=== PATIENT | female | born 1945 | race African-American/Black ===

== ENCOUNTER 2017-01-05 10:08 | Emergency (ER) | payer OTHER ==
[~2017-01-05] VITALS: Ht 170.2 cm; Wt 81.6 kg
[2017-01-05 10:02] VITALS: BP 137/86
--- NOTE | 2017-01-05 11:13 | Diagnostic Imaging Report ---
Indication: Trauma with pain Technique: CT scan of the pelvis performed without intravenous contrast material. Axial, coronal, and sagittal images were generated. Dose: Total Dose Length Product - DLP [address] Dose Index - CTDIvol(s) 11.52 mGy. Comparison: None Findings: Examination demonstrates the pelvis to be intact. No fractures identified. There is no evidence of bone destruction. There is severe narrowing of the left hip joint with subchondral cyst formation in the femoral head and within the acetabulum. Spurring is also present. The right hip joint is unremarkable. There is some degenerative change as well as in the symphysis pubis. Degenerative changes also noted in the lumbar spine (see CT lumbar) . There is a grade 1 spondylolisthesis of L5 on S1. The uterus demonstrates abnormal thickening of the endometrium to 2.5 cm. There is also a mass in the left side of the uterus measuring 3.3 cm. The bladder is unremarkable. There is some vascular calcification. Impression: Degenerative changes in the lumbar spine. Grade 1 spondylolisthesis of L5 on S1. Severe osteoarthrosis of the left hip. Abnormal thickening of the endometrium. Further evaluation with ultrasound suggested. Fibroid in the left side of the uterus. The CT scanner at [facility] is accredited by the [employer] and the scans are performed using protocols designed to limit radiation exposure to as low as reasonably achievable to attain images of sufficient resolution adequate for diagnostic evaluation.
[2017-01-05 11:15] LABS: MEAN CORPUSCULAR HEMOGLOBIN 35.6 PG (27.0-31.0); MEAN CORPUSCULAR HGB CONC 32.2 G/DL (32.0-36.0); MEAN CORPUSCULAR VOLUME 111 FL (80-99); MEAN PLATELET VOLUME 7.3 FL (6.5-10.1); PLATELET COUNT 106 K/UL (150-450); RED BLOOD COUNT 3.73 M/UL (4.20-5.40); RED CELL DISTRIBUTION WIDTH 13.1 % (11.6-14.8); WHITE BLOOD COUNT 7.9 K/UL (4.8-10.8)
--- NOTE | 2017-01-05 11:17 | Diagnostic Imaging Report ---
Indication: Trauma with pain Technique: CT scan of the lumbar spine performed without intravenous contrast material. Axial, coronal comment sagittal images were generated. Dose: Total Dose Length Product - DLP [address] Dose Index - CTDIvol(s) 12.6 mGy. Findings: L5-S1: There is narrowing of the L5-S1 disc with a vacuum phenomenon. Mild annular bulge of the disc is noted. There is a grade 1 spondylolisthesis of L5 on S1. Narrowing of the facets is present with some subchondral cyst formation. Spinal canal is normal in width. There is foraminal narrowing bilaterally. L4-L5: The disc is normal. There is mild foraminal narrowing bilaterally.. There is severe degenerative change in the facets.. The spinal canal is normal in width. The nerve roots are symmetric. L3-L4: The disc is normal. The neural foramina are unremarkable. There is moderate degenerative change of the facets.. The spinal canal is normal in width. The nerve roots are symmetric. L2-L3: The disc is normal. The neural foramina are unremarkable. The facets are normal. The spinal canal is normal in width. The nerve roots are symmetric. L1-L2: The disc is normal. The neural foramina are unremarkable. The facets are normal. The spinal canal is normal in width. The nerve roots are symmetric. Impression: Degenerative spondylosis, worst at L4-5 and L5-S1. Grade 1 spondylolisthesis of L5 on S1. Bilateral L5-S1 foraminal narrowing. Mild foraminal narrowing at L4-5. There is no evidence of fracture or acute abnormality. The CT scanner at [facility] is accredited by the [employer] and the scans are performed using protocols designed to limit radiation exposure to as low as reasonably achievable to attain images of sufficient resolution adequate for diagnostic evaluation.
[2017-01-05 11:44] LABS: APPEARANCE,URINE CLEAR; KETONES,URINE 4+ (NEGATIVE); LEUKOCYTE ESTERASE ,URINE 1+ (NEGATIVE); NITRITE,URINE NEGATIVE (NEGATIVE); PH,URINE 6 (4.5-8.0); PROTEIN,URINE 2+ (NEGATIVE); UROBILINOGEN,URINE 1 MG/DL (0.0-1.0)
[2017-01-05 11:59] LABS: BACTERIA,URINE FEW /HPF; MUCUS,URINE MODERATE /LPF (NONE/OCC); RBC,URINE 0-2 /HPF (0 - 2); SQUAMOUS EPITHELIAL CELL,UR FEW /LPF (NONE/OCC)
[2017-01-05 12:04] LABS: BAND NEUTROPHILS % (MANUAL) 0 % (0-8); BASOPHILS % (MANUAL) 0 % (0-2); EOSINOPHILS % (MANUAL) 1 % (0-3); LYMPHOCYTES % (MANUAL) 14 % (20-45); NEUTROPHILS % (MANUAL) 81 % (45-75); PLATELET ESTIMATE DECREASED; PLATELET MORPHOLOGY NORMAL; TOTAL CELLS COUNTED 100
[2017-01-05 12:05] LABS: HYPOCHROMASIA 1+; MACROCYTES 1+
[2017-01-05 12:47] LABS: ALANINE AMINOTRANSFERASE 68 U/L (3-33); ALBUMIN/GLOBULIN RATIO 0.9 (1.0-2.7); ANION GAP 29 (5-15); ASPARTATE AMINO TRANSFERASE 98 U/L (5-40); CARBON DIOXIDE 13 mEQ/L (20-30); CHLORIDE 94 mEQ/L (98-107); CREATININE 0.8 mg/dL (0.5-0.9); GLOMERULAR FILTRATION RATE > 60 mL/min (>60); HEMOLYSIS 40; POTASSIUM 4.6 mEQ/L (3.4-4.9); SODIUM 136 mEQ/L (135-145); TOTAL PROTEIN 7.3 g/dL (6.6-8.7); TROPONIN I < 0.30 ng/mL (<=0.30)
[2017-01-05 12:55] VITALS: BP 132/81
[2017-01-05 12:57] LABS: CKMB 5.2 ng/mL (< 3.8)
[2017-01-05 13:08] LABS: BILIRUBIN,DIRECT 0.4 mg/dL (0.1-0.3)
[2017-01-05 13:54] VITALS: BP 135/82
--- NOTE | 2017-01-05 14:42 | Emergency Room Report ---
History of Present Illness General Chief Complaint: Multiple Trauma/Fall Source: Patient (ATIF RAE M.D.) Present Illness HPI 71-year-old female presents to ED for evaluation. Patient had a mechanical fall at home and was found down. Patient states she fell 2 days ago. Patient states she feels weak. Denies hitting her head or LOC. Denies chest pain shortness of breath. States she did not eat or drink for the last 2 days. No other aggravating or relieving factors. Denies any other associated symptoms (ATIF RAE M.D.) Allergies: Coded Allergies: No Known Allergies (Unverified , 01/05/17) Patient History Past Medical History: none Past Surgical History: none Pertinent Family History: none Social History: Denies: alcohol use, drug use, smoking Now: No Immunizations: UTD Reviewed Nursing Documentation: PMH: Agreed, PSxH: Agreed (ATIF RAE M.D.) Nursing Documentation-PMH Past Medical History: No History, Except For Hx Hypertension: Yes - Hyperlipidemia (ATIF RAE M.D.) Review of Systems All Other Systems: negative except mentioned in HPI (ATIF REA M.D.) Physical Exam Vital Signs Date Time Temp Pulse Resp B/P Pulse Ox O2 Delivery O2 Flow Rate FiO2 01/05/17 09:47 97.9 85 16 137/86 99 Room Air Sp02 EP Interpretation: reviewed, normal General Appearance: no apparent distress, alert, GCS 15, non-toxic Head: normocephalic, atraumatic Eyes: bilateral eye PERRL, bilateral eye normal inspection ENT: hearing grossly normal, normal pharynx, no angioedema, normal voice Neck: full range of motion, supple/symm/no masses Respiratory: chest non-tender, lungs clear, normal breath sounds, speaking full sentences Cardiovascular #1: regular rate, rhythm, no edema Cardiovascular #2: 2+ carotid (R), 2+ carotid (L), 2+ radial (R), 2+ radial (L) , 2+ dorsalis pedis (R), 2+ dorsalis pedis (L) Gastrointestinal: normal bowel sounds, non tender, soft, non-distended, no guarding, no rebound Rectal: deferred Genitourinary: normal inspection, no CVA tenderness Musculoskeletal: back normal, gait/station normal, normal range of motion, non- tender Neurologic: alert, oriented x3, responsive, motor strength/tone normal, sensory intact, speech normal Psychiatric: judgement/insight normal, memory normal, mood/affect normal, no suicidal/homicidal ideation Reflexes: 3+ bicep (R), 3+ bicep (L), 3+ tricep (R), 3+ tricep (L), 3+ knee (R) , 3+ knee (L) Skin: normal color, no rash, warm/dry, well hydrated Lymphatic: no adenopathy (ATIF RAE M.D.) Medical Decision Making Diagnostic Impression: Primary Impression: Rhabdomyolysis Qualified Codes: M62.82 - Rhabdomyolysis Additional Impression: Weakness Labs Test 01/05/17 11:00 01/05/17 11:15 01/05/17 12:20 White Blood Count 7.9 K/UL (4.8-10.8) Red Blood Count 3.73 M/UL (4.20-5.40) Hemoglobin 13.3 G/DL (12.0-16.0) Hematocrit 41.2 % (37.0-47.0) Mean Corpuscular Volume 111 FL (80-99) Mean Corpuscular Hemoglobin 35.6 PG (27.0-31.0) Mean Corpuscular Hemoglobin Concent 32.2 G/DL (32.0-36.0) Red Cell Distribution Width 13.1 % (11.6-14.8) Platelet Count 106 K/UL (150-450) Mean Platelet Volume 7.3 FL (6.5-10.1) Neutrophils (%) (Auto) % (45.0-75.0) Lymphocytes (%) (Auto) % (20.0-45.0) Monocytes (%) (Auto) % (1.0-10.0) Eosinophils (%) (Auto) % (0.0-3.0) Basophils (%) (Auto) % (0.0-2.0) Differential Total Cells Counted 100 Neutrophils % (Manual) 81 % (45-75) Lymphocytes % (Manual) 14 % (20-45) Monocytes % (Manual) 4 % (1-10) Eosinophils % (Manual) 1 % (0-3) Basophils % (Manual) 0 % (0-2) Band Neutrophils 0 % (0-8) Platelet Estimate Decreased Platelet Morphology Normal Hypochromasia 1+ Macrocytosis 1+ Urine Color Yellow Urine Appearance Clear Urine pH 6 (4.5-8.0) Urine Specific [place] 1.025 (1.005-1.035) Urine Protein 2+ (NEGATIVE) Urine Glucose (UA) Negative (NEGATIVE) Urine Ketones 4+ (NEGATIVE) Urine Occult Blood Negative (NEGATIVE) Urine Nitrite Negative (NEGATIVE) Urine Bilirubin Negative (NEGATIVE) Urine Urobilinogen 1 MG/DL (0.0-1.0) Urine Leukocyte Esterase 1+ (NEGATIVE) Urine RBC 0-2 /HPF (0 - 2) Urine WBC 5-10 /HPF (0 - 2) Urine Squamous Epithelial Cells Few /LPF (NONE/OCC) Urine Bacteria Few /HPF (NONE) Urine Mucus Moderate /LPF (NONE/OCC) Sodium Level 136 mEQ/L (135-145) Potassium Level 4.6 mEQ/L (3.4-4.9) Chloride Level 94 mEQ/L (98-107) Carbon Dioxide Level 13 mEQ/L (20-30) Anion Gap 29 (5-15) Blood Urea Nitrogen 7 mg/dL (7-23) Creatinine 0.8 mg/dL (0.5-0.9) Estimat Glomerular Filtration Rate > 60 mL/min (>60) Glucose Level 83 mg/dL (74-106) Calcium Level 9.0 mg/dL (8.6-10.2) Total Bilirubin 1.1 mg/dL (0.0-1.2) Direct Bilirubin 0.4 mg/dL (0.1-0.3) Aspartate Amino Transf (AST/SGOT) 98 U/L (5-40) Alanine Aminotransferase (ALT/SGPT) 68 U/L (3-33) Alkaline Phosphatase 96 U/L (35-104) Total Creatine Kinase 748 U/L (26-140) Creatine Kinase MB 5.2 ng/mL (< 3.8) Creatine Kinase MB Relative Index 0.6 Troponin I < 0.30 ng/mL (<=0.30) Pro-B-Type Natriuretic Peptide 1316 pg/mL (0-125) Total Protein 7.3 g/dL (6.6-8.7) Albumin 3.5 g/dL (3.5-5.2) Globulin 3.8 g/dL Albumin/Globulin Ratio 0.9 (1.0-2.7) (ATIF RAE M.D.) ER Course Patient was endorsed to me by . The patient was noted to have generalized weakness after recently been found down. A CT imaging was reportedly significant degenerative changes. The patient was awake and alert. The patient's condition was extensively discussed with her son as well as the patient. The the patient was pending a possible transferred [facility]. The patient's son did not want her to be hospitalized at that site. The potential complications of not hospitalizing including worsening renal condition or discussed with the patient's son. He indicated understanding. The patient was discharged home. She was to followup with her primary care physician in the next 2 days. The patient was given a copy of her laboratory testing and imaging. The patient will likely need fpc placement and this was discussed with the son. They were advised to return if she began having a decreased urine output or change in urine color, change in mental status, persistent vomiting or other concerns. The patient's son stated that the patient would have someone available to maintain [facility]p. He seems to be fairly knowledgeable and responsible. Labs Test 01/05/17 11:00 01/05/17 11:15 01/05/17 12:20 White Blood Count 7.9 K/UL (4.8-10.8) Red Blood Count 3.73 M/UL (4.20-5.40) Hemoglobin 13.3 G/DL (12.0-16.0) Hematocrit 41.2 % (37.0-47.0) Mean Corpuscular Volume 111 FL (80-99) Mean Corpuscular Hemoglobin 35.6 PG (27.0-31.0) Mean Corpuscular Hemoglobin Concent 32.2 G/DL (32.0-36.0) Red Cell Distribution Width 13.1 % (11.6-14.8) Platelet Count 106 K/UL (150-450) Mean Platelet Volume 7.3 FL (6.5-10.1) Neutrophils (%) (Auto) % (45.0-75.0) Lymphocytes (%) (Auto) % (20.0-45.0) Monocytes (%) (Auto) % (1.0-10.0) Eosinophils (%) (Auto) % (0.0-3.0) Basophils (%) (Auto) % (0.0-2.0) Differential Total Cells Counted 100 Neutrophils % (Manual) 81 % (45-75) Lymphocytes % (Manual) 14 % (20-45) Monocytes % (Manual) 4 % (1-10) Eosinophils % (Manual) 1 % (0-3) Basophils % (Manual) 0 % (0-2) Band Neutrophils 0 % (0-8) Platelet Estimate Decreased Platelet Morphology Normal Hypochromasia 1+ Macrocytosis 1+ Urine Color Yellow Urine Appearance Clear Urine pH 6 (4.5-8.0) Urine Specific [place] 1.025 (1.005-1.035) Urine Protein 2+ (NEGATIVE) Urine Glucose (UA) Negative (NEGATIVE) Urine Ketones 4+ (NEGATIVE) Urine Occult Blood Negative (NEGATIVE) Urine Nitrite Negative (NEGATIVE) Urine Bilirubin Negative (NEGATIVE) Urine Urobilinogen 1 MG/DL (0.0-1.0) Urine Leukocyte Esterase 1+ (NEGATIVE) Urine RBC 0-2 /HPF (0 - 2) Urine WBC 5-10 /HPF (0 - 2) Urine Squamous Epithelial Cells Few /LPF (NONE/OCC) Urine Bacteria Few /HPF (NONE) Urine Mucus Moderate /LPF (NONE/OCC) Sodium Level 136 mEQ/L (135-145) Potassium Level 4.6 mEQ/L (3.4-4.9) Chloride Level 94 mEQ/L (98-107) Carbon Dioxide Level 13 mEQ/L (20-30) Anion Gap 29 (5-15) Blood Urea Nitrogen 7 mg/dL (7-23) Creatinine 0.8 mg/dL (0.5-0.9) Estimat Glomerular Filtration Rate > 60 mL/min (>60) Glucose Level 83 mg/dL (74-106) Calcium Level 9.0 mg/dL (8.6-10.2) Total Bilirubin 1.1 mg/dL (0.0-1.2) Direct Bilirubin 0.4 mg/dL (0.1-0.3) Aspartate Amino Transf (AST/SGOT) 98 U/L (5-40) Alanine Aminotransferase (ALT/SGPT) 68 U/L (3-33) Alkaline Phosphatase 96 U/L (35-104) Total Creatine Kinase 748 U/L (26-140) Creatine Kinase MB 5.2 ng/mL (< 3.8) Creatine Kinase MB Relative Index 0.6 Troponin I < 0.30 ng/mL (<=0.30) Pro-B-Type Natriuretic Peptide 1316 pg/mL (0-125) Total Protein 7.3 g/dL (6.6-8.7) Albumin 3.5 g/dL (3.5-5.2) Globulin 3.8 g/dL Albumin/Globulin Ratio 0.9 (1.0-2.7) (Carlitos Burkett) EKG Diagnostic Results Rate: normal Rhythm: NSR ST Segments: other - peaked twaves in lateral leads ASA given to the pt in ED: No (ATIF RAE M.D.) Rhythm Strip Diag. Results EP Interpretation: yes Rhythm: NSR, no PVC's, no ectopy (ATIF RAE M.D.) CT/MRI/US Diagnostic Results CT/MRI/US Diagnostic Results #1: Imaging Test Ordered: CT L-spine Impression degenerative changes, no acute fx CT/MRI/US Diagnostic Results #2: Imaging Test Ordered: CT Pelvis Impression degenerative changes. no acute fx (ATIF RAE M.D.) Last Vital Signs Date Time Temp Pulse Resp B/P Pulse Ox O2 Delivery O2 Flow Rate FiO2 01/05/17 13:54 97.9 84 16 135/82 99 Room Air (ATIF RAE M.D.) Status: improved (Carlitos Burkett) Disposition: HOME, SELF-CARE Condition: Stable Referrals: NON PHYSICIAN (PCP) ATIF RAE M.D. Jan 05, 2017 14:42 Carlitos Burkett Jan 05, 2017 17:52
[2017-01-05] MEDS ORDERED: LEVOTHYROXINE25 MCG ORAL (14:45)
[2017-01-05] MEDS ORDERED: LISINOPRIL5 MG ORAL (14:45)
[2017-01-05] MEDS ORDERED: ASPIRIN81 MG ORAL (14:45)
[2017-01-05] MEDS ORDERED: SIMVASTATIN5 MG ORAL (14:45)
[2017-01-05 15:59] VITALS: BP 121/62
[2017-01-05 17:55] VITALS: BP 121/62
--- NOTE | 2017-01-06 16:57 | Cardiology Report ---
APPROVED REPORT EKG Measurement Heart [id number] CA 130P-1 [id number] Sinus rhythm with premature atrial complexes Otherwise normal ECG
== END 2017-01-05 17:59 | disposition home or self-care (01) ==
LOC: EDBD 10:08 → EMR 13:01
DX: M62.82 Rhabdomyolysis (principal); R53.1 Weakness; E78.5 Hyperlipidemia, unspecified
CPT/HCPCS: 36415; 72131; 72192; 80053; 81003; 82248; 82550; 82553; 83880; 84484; 85007; 85025; 93005; 96374; 96375